=== PATIENT | female | born 1990 | race Caucasian/White ===

== ENCOUNTER 2022-12-02 11:15 | Emergency (ER) | payer OTHER ==
[~2022-12-02] VITALS: Ht 160 cm; Wt 88.5 kg
--- NOTE | 2022-12-02 11:25 | NUR ---
Patient AOx4, no signs of distress. Patient reports pain to biltaeral shoulders and lower back. discussed plan of care, pt verbalized agreement. All safety precautions taken, will continue to monitor throughout shift.
[2022-12-02] MEDS: ACETAMINOPHEN 325 MG TABLET PO ONE (11:58)
[2022-12-02] MEDS ORDERED: ACETAMINOPHEN 325 MG TABLET ONE (11:59)
[2022-12-02 15:38] VITALS: BP 120/70
== END 2022-12-02 15:41 | disposition home or self-care (01) ==
LOC: ER 11:27
DX: M25.511 Pain in right shoulder (principal); M25.512 Pain in left shoulder; M54.50 Low back pain, unspecified; F41.9 Anxiety disorder, unspecified; V49.9XXA Car occupant (driver) (passenger) injured in unspecified traffic accident, initial encounter; Y93.89 Activity, other specified; Y92.411 Interstate highway as the place of occurrence of the external cause; Y99.8 Other external cause status
CPT/HCPCS: 72110-TC; 73030-TC; 84703-TC